=== PATIENT | male | born 1955 | race Caucasian/White ===

== ENCOUNTER 2016-05-02 06:40 | Inpatient (IN) | payer OTHER ==
[~2016-05-02] VITALS: Ht 177.8 cm; Wt 81.6 kg
--- NOTE | 2016-05-02 06:40 | NUR ---
BIBA TO ER BED 4
[2016-05-02 06:57] VITALS: BP 103/68
--- NOTE | 2016-05-02 07:00 | NUR ---
Pt report given to CHARLES. Transfer of care at this time.
[2016-05-02] MEDS ORDERED: NACL 0.9% 1,000 ML IV ONE (07:05)
--- NOTE | 2016-05-02 07:20 | NUR ---
LAB AT BEDSIDE
--- NOTE | 2016-05-02 07:38 | NUR ---
60/M BIBA C/O ETOH, PATIENT ALERT AWAKE ,PAIN ALL OVER BODY. PT DENIES N/V/D AT THIS TIME; SKIN IS PINK/WARM/DRY; SKIN TEAR L ELBOW & L LEG; PITTING EDENA +4 BOTH EXTREMITIES; AAOX4 WITH EVEN AND STEADY GAIT; LUNGS CLEAR BL; HR EVEN AND REGULAR; PT DENIES ANY FEVER, CP, SOB, OR COUGH AT THIS TIME; PATIENT STATES PAIN OF 7/10 AT THIS TIME; VSS; PATIENT POSITIONED FOR COMFORT; HOB ELEVATED; BEDRAILS UP X2; BED DOWN. ER MD MADE AWARE OF PT STATUS.
--- NOTE | 2016-05-02 07:42 | NUR ---
X RAY AT BEDSIDE
[2016-05-02] MEDS ORDERED: VANCOMYCIN 1,000 MG in DEXTROSE 5% 250 ML IV ONE (07:50)
[2016-05-02] MEDS ORDERED: VANCOMYCIN 1,000 MG VIAL ONE (08:06)
--- NOTE | 2016-05-02 08:30 | NUR ---
PT CAN EAT BREAKFAST,NO N/V NOTED.
--- NOTE | 2016-05-02 09:19 | NUR ---
CALLED LORETTA LEE TO GIVE REPORT; LORETTA LEE SAID WILL CALL BACK IN 5 MINS
--- NOTE | 2016-05-02 09:30 | NUR ---
Patient will be admitted to care of DR NEW. Admited to [facility] Will go to room 119. Belongings list completed. Report to LORETTA LEE.
[2016-05-02 10:10] VITALS: BP 140/83
--- NOTE | 2016-05-02 10:30 | NUR ---
PT ADMITTED FROM ER TO TELE WITH DX LEFT LOWER LEG CELLULITIS AND ETOH ABUSE. PT TRANSFERRED FROM [facility] TO BED WITH MINIMAL ASSIST. AAOX4. LETHARGIC. BLE AND BUE SCABS NOTED. NO S/S OF RESPIRATORY DISTRESS. IV RH PATENT AND INTACT. BED IN LOWEST POSITION. CALL LIGHT WITHIN REACH. WILL CONTINUE TO MONITOR.
[2016-05-02] MEDS ORDERED: LORazepam 1 MG TAB PO SCH (11:00)
[2016-05-02] MEDS ORDERED: ONDANSETRON 4 MG/2 ML VIAL IVP PRN (11:05)
[2016-05-02] MEDS ORDERED: LORazepam 2 MG/ML VIAL IVP PRN (11:05)
[2016-05-02] MEDS: NACL 0.9% 1,000 ML IV SCH ×2 (11:24→21:07)
[2016-05-02 12:00] VITALS: BP 100/58
[2016-05-02] MEDS ORDERED: FOLIC ACID 1 MG TAB PO SCH (12:00)
[2016-05-02] MEDS ORDERED: MULTIVITAMIN 1 TAB PO SCH (12:00)
[2016-05-02] MEDS ORDERED: THIAMINE 100 MG TAB PO SCH (12:00)
[2016-05-02] MEDS: LORazepam 1 MG TAB PO SCH ×2 (13:32→20:48)
--- NOTE | 2016-05-02 13:50 | NUR ---
PATIENT SLEEPING, EASILY AWAKENS. NO S/S OF ACUTE DISTRESS. NO TREMORS. WILL CONTINUE TO MONITOR.
--- NOTE | 2016-05-02 14:40 | NUR ---
PATIENT CONVERTED TO AT FIB. PT RESTING IN BED. NO S/S OF ACUTE DISTRESS. DENIES DISCOMFORT. DR. GEIGER MADE AWARE.
[2016-05-02 16:00] VITALS: BP 124/78
--- NOTE | 2016-05-02 16:01 | NUR ---
PATIENT RESTING IN BED. NO S/S OF ACUTE DISTRESS. CALL LIGHT WITHIN REACH. WILL CONTINUE TO MONITOR.
--- NOTE | 2016-05-02 17:00 | NUR ---
DR. TOVAR PERFORMED BEDSIDE CARE FOR PATIENT AT THIS TIME. NO S/S OF ACUTE DISTRESS.
[2016-05-02] MEDS: ACETAMINOPHEN 325 MG TAB PO PRN (17:45)
--- NOTE | 2016-05-02 19:15 | NUR ---
RECEIVED REPORT FROM LORETTA LEE AT BEDSIDE. INITIAL ASSESSMENT COMPLETED. PT AAOX4. PT SLEEPY/LETHARGIC. PT HAS IV TO RIGHT HAND G 20; ASYMPTOMATIC, PATENT AND INTACT INFUSING FLUIDS WELL. PT HAS BILATERAL LOWER EXTREMITIES CELLULITIS. SCABS NOTED TO LEFT LOWE LEG. ORIENTED PT TO ROOM AND SURROUNDINGS AND USE OF CALL LIGHT. EXPLAINED PLAN OF CARE TO PT. PT STATED TO BE LEFT ALONE, HE STATED THAT HE IS SLEEPING. WILL CONTINUE TO MONITOR PT.
--- NOTE | 2016-05-02 19:20 | NUR ---
ENDORSED PLAN OF CARE TO RN ALLYSON AT PT BEDSIDE. NO S/S OF ACUTE DISTRESS.
[2016-05-02 20:00] VITALS: BP 113/74
--- NOTE | 2016-05-02 21:05 | NUR ---
PT TOLERATED 2100 MEDS WELL, VS STABLE. WILL CONTINUE TO MONITOR PT.
--- NOTE | 2016-05-02 22:26 | NUR ---
CHECKED ON PT. PT TRYING TO USE URINAL BUT PT IS SLEEPY/LETHARGIC. I OFFERED TO HELP PT BUT HE GOT ANGRY. HE TOLD ME TO TURN OFF THE LIGHT AND GET OUT OF THE ROOM. WILL CONTINUE TO MONITOR PT. CALL LIGHT WITHIN REACH.
[2016-05-03] VITALS: BP 135/78
[2016-05-03] MEDS: NACL 0.9% 1,000 ML IV SCH ×2 (00:21→17:15)
--- NOTE | 2016-05-03 00:59 | NUR ---
PT AMBULATED TO THE RESTROOM WITH BLUEPRINT DUPLICATOR. PT HAD A LARGE BM. PT WAS WET. LINEN AND GOWN CHANGED. PT RESTING IN BED NOW. WILL CONTINUE TO MONITOR PT.
--- NOTE | 2016-05-03 02:34 | NUR ---
PT SLEEPING AT THIS TIME. NO SIGNS OF DISTRESS OR DISCOMFORT NOTED. WILL CONTINUE TO MONITOR PT.
[2016-05-03 04:00] VITALS: BP 117/67
[2016-05-03] MEDS: LORazepam 1 MG TAB PO SCH ×3 (04:29→21:24)
--- NOTE | 2016-05-03 04:34 | NUR ---
PT TOLERATED 0500 MEDS WELL. PT RESTING COMFORTABLY IN BED, DENIES PAIN. VS ARE STABLE, WILL CONTINUE TO MONITOR PT.
--- NOTE | 2016-05-03 05:45 | NUR ---
CHECKED ON PT. HE STATED THAT HE WAS SLEEPING AND TO LEAVE HIM ALONE AND TURN OFF THE LIGHT. WILL CONTINUE TO MONITOR PT.
[2016-05-03] MEDS ORDERED: ALBUTEROL SULFATE/IPRATROPIU 3 ML SOL IH PRN (06:50)
--- NOTE | 2016-05-03 07:10 | NUR ---
ENDORSED PT IN STABLE CONDITION TO RN SHAHID FOR CONTINUITY OF CARE.
--- NOTE | 2016-05-03 07:11 | NUR ---
PT ALERT AND ORIENTED, NO SIGNS OF ACUTE DISTRESS. SKIN IS WARM AND DRY. NOTED BLE EDEMA, ELEVATED ON PILLOWS. NO C/O ANY BOWEL OR BLADDER DISCOMFORT. ABLE TO AMBULATE WITH MINIMAL ASSIST. DENIES OF ANY PAIN OR DISCOMFORT, SAFETY PRECAUTIONS MAINTAINED. ALL NEEDS ATTENDED. CALL LIGHT WITHIN REACH.
[2016-05-03 08:00] VITALS: BP 139/70
--- NOTE | 2016-05-03 08:26 | NUR ---
PATIENT HAS BEEN SCREENED AND CATEGORIZED MODERATE NUTRITION RISK. PATIENT WILL BE SEEN WITHIN 3-5 DAYS OF ADMISSION. 05/05/16-05/07/[address]
[2016-05-03] MEDS: FOLIC ACID 1 MG TAB PO SCH (09:17)
[2016-05-03] MEDS: MULTIVITAMIN 1 TAB PO SCH (09:17)
[2016-05-03] MEDS: THIAMINE 100 MG TAB PO SCH (09:18)
[2016-05-03 12:00] VITALS: BP 144/75
--- NOTE | 2016-05-03 12:32 | NUR ---
NEW ORDERS RECEIVED FROM DR. TOVAR, NOTED AND CARRIED OUT.
[2016-05-03] MEDS ORDERED: NICOTINE TRANSD SYS 14 MG/24 HR PATCH TD SCH (12:38)
[2016-05-03] MEDS ORDERED: MAG SULF 2000 MG/WATER PREMIX 50 ML IV SCH (13:00)
--- NOTE | 2016-05-03 13:26 | NUR ---
SPUTUM SENT FOR C7S SPUTUM GIVEN TO LORETTA KEY
[2016-05-03] MEDS: ANTIFUNGAL CLEAR OINTMENT TP SCH ×2 (13:38→21:15)
[2016-05-03 16:00] VITALS: BP 140/82
--- NOTE | 2016-05-03 16:00 | NUR ---
TRANSFERRED TO MED/SURG LEVEL OF CARE. ORDERED, CONTINUE TO MONITOR.
--- NOTE | 2016-05-03 19:01 | NUR ---
PT ALERT AND RESPONSIVE, NO SIGNS OF ACUTE DISTRESS. ENDORSED TO ONCOMING MEDICAL OFFICE RECEPTIONIST ASSISTANT NURSE FOR CONTINUITY OF CARE.
--- NOTE | 2016-05-03 19:02 | NUR ---
FOUND EMPTY SMALL BOTTLE OF VODKA ON PT'S BED. GRADE SCHOOL TEACHER NURSE TO F/U WITH MD TO BE MADE AWARE. CHARGE NURSE ALSO MADE AWARE.
--- NOTE | 2016-05-03 19:30 | NUR ---
PATIENT IS AWAKE RESTING IN BED DENIES PAIN AT THIS TIME,IVF INFUSING WELL,PATIENT CONTINUES TO USE THE URINAL, PT IS CALM AND COOPERATIVE.PATIENTS BOTH LOWER EXTREMITIES ARE SWOLLEN AND REDDENED AND IN BETWEEN HIS TOES ITS VERY DRY PATIENT HAS A ANTIFUNGAL CREAM THAT WAS ORDERED WILL APPLY LATER.VITALS SIGNS PATIENT REMAINS AFEBRILE.WILL CONTINUE TO MONITOR.
--- NOTE | 2016-05-03 19:30 | NUR ---
Patient's Plan of Care was discussed and reviewed with INFORMATION SYSTEMS SECURITY SPECIALIST: SWATI
[2016-05-03 20:11] VITALS: BP 123/67
--- NOTE | 2016-05-03 20:38 | NUR ---
PT ASLEEP, NO DISTRESS/SOB/WHEEZING NOTED AT THIS TIME. NO INDICATION FOR HHN PRN TX
[2016-05-03] MEDS: SACCHAROMYCES 250 MG CAP PO SCH (21:25)
--- NOTE | 2016-05-03 22:20 | NUR ---
PATIENT IS CURRENTLY RESTING IN BED USES THE URINAL,IVF INFUSING WELL IV SITE PATENT,PATIENT ON FALL PRECAUTIONS WILL CONTINUE TO MONITOR.CALL LIGHT WITHIN REACH.
[2016-05-04] VITALS: BP 138/76
--- NOTE | 2016-05-04 01:30 | NUR ---
WHILE MAKING ROUNDS I NOTICE PATIENT GOT UP TO USE THE BATHROOM AND DIDN'T CALL FOR ASSISTANCE,SO I ASSISTED HIM BACK IN BED AND DENNYS LINDO AND MYSELF CHANGED THE BED TO ONE THAT HAS A BED ALARM.PT INSTRUCTED FOR SAFETY TO CALL FOR HELP.PT VERBALIZES UNDERSTANDING BUT WILL CONTINUE TO MONITOR.
--- NOTE | 2016-05-04 04:03 | NUR ---
PATIENT IS CURRENTLY RESTING IN BED SNORING AT THIS TIME,IVF INFUSING WELL,IV SITE PATENT WILL CONTINUE TO MONITOR.
[2016-05-04] MEDS: LORazepam 1 MG TAB PO SCH ×3 (06:05→20:37)
[2016-05-04] MEDS: NACL 0.9% 1,000 ML IV SCH ×3 (06:05→16:36)
--- NOTE | 2016-05-04 06:15 | NUR ---
PT STABLE FALL PREC IMPLEMENTED AND BED ALAR ON.PT SLEEPING.CALL LIGHT WITHIN REACH.
--- NOTE | 2016-05-04 07:25 | NUR ---
PT STABLE REPORT ENDORSED TO LORETTA BOSS HE WILL RESUME CARE OF THE PATIENT.
--- NOTE | 2016-05-04 07:28 | NUR ---
RECEIVED REPORT FROM AMANDA CHAVEZ. PT IS AAOX4, RESTING IN BED, IV ON RT FA 20 G, PATENT AND INTACT. NO S/S OF RESPIRATORY DISTRESS OR DISCOMFORT NOTED. SAFETY/FALL PRECAUTIONS IN PLACE. DISCUSSED PLAN OF CARE WITH PT, PT VERBALIZED UNDERSTANDING. CALL LIGHT WITHIN REACH. WILL CONTINUE TO MONITOR.
[2016-05-04] MEDS: FOLIC ACID 1 MG TAB PO SCH (08:59)
[2016-05-04] MEDS: SACCHAROMYCES 250 MG CAP PO SCH ×2 (08:59→20:37)
[2016-05-04] MEDS: THIAMINE 100 MG TAB PO SCH (09:00)
[2016-05-04] MEDS: MULTIVITAMIN 1 TAB PO SCH (09:00)
[2016-05-04] MEDS: NICOTINE TRANSD SYS 14 MG/24 HR PATCH TD SCH (09:18)
--- NOTE | 2016-05-04 09:18 | NUR ---
PT IS RESTING IN BED. DUE MEDS ARE GIVEN AT THIS TIME. NO S/S OF RESPIRATORY DISTRESS OR DISCOMFORT NOTED. FALL/SAFETY PRECAUTIONS IN PLACE. CALL LIGHT WITHIN REACH. WILL CONTINUE TO MONITOR.
[2016-05-04] MEDS: ANTIFUNGAL CLEAR OINTMENT TP SCH ×2 (09:19→20:37)
--- NOTE | 2016-05-04 11:05 | NUR ---
PT IS RESTING IN BED WATCHING TV. NO S/S OF RESPIRATORY DISTRESS OR DISCOMFORT NOTED. CALL LIGHT WITHIN REACH. WILL CONTINUE TO MONITOR.
--- NOTE | 2016-05-04 11:54 | NUR ---
DR. BUCHANAN, MILLING MACHINE SET UP OPERATOR IS IN THE NURSE'S STATION.
--- NOTE | 2016-05-04 13:11 | NUR ---
DUE MEDS GIVEN. PT TOLERATED WELL. ALL NEEDS MET AT THIS TIME. NO S/S OF RESPIRATORY DISTRESS OR DISCOMFORT NOTED. CALL LIGHT WITHIN REACH. WILL CONTINUE TO MONITOR.
--- NOTE | 2016-05-04 15:08 | NUR ---
ASSISTED PT TO THE RESTROOM. PT HAD MODERATE AMOUNT OF FORMED BROWN BOWEL MOVEMENT. ASSISTED BACK TO THE BED. PT TOLERATED IT WELL. ALL NEEDS MET AT THIS TIME. CALL LIGHT WITHIN REACH. WILL CONTINUE TO MONITOR.
[2016-05-04 16:00] VITALS: BP 119/61
[2016-05-04] MEDS: ACETAMINOPHEN 325 MG TAB PO PRN (16:52)
--- NOTE | 2016-05-04 16:52 | NUR ---
PT IS RESTING IN BED. IV FLUIDS REPLACED AND RUNNING. PT COMPLAINED OF A 7/10 PAIN. DUE PAIN MEDICATION GIVEN AT THIS TIME. PT TOLERATED WELL. NO S/S OF RESPIRATORY DISTRESS OR DISCOMFORT NOTED. ALL NEEDS MET AT THIS TIME. CALL LIGHT WITHIN REACH. WILL CONTINUE TO MONITOR.
--- NOTE | 2016-05-04 19:04 | NUR ---
ENDORSED PT TO AMANDA CHAVEZ FOR CONTINUITY OF CARE. PT IS STABLE AT THIS TIME.
--- NOTE | 2016-05-04 19:05 | NUR ---
PATIENT IS CURRENTLY AWAKE ALERT AND COMPLIANT PATIENT IS RESTING IN BED AT THIS TIME ASSISTED TO USE THE URINAL PATIENT CONTINUES TO BE ON FALL PRECAUTIONS AND BED ALARM IS ON.CALL LIGHT WITHIN REACH WILL CONTINUE TO MONITOR.
[2016-05-04 20:00] VITALS: BP 138/74
--- NOTE | 2016-05-04 20:00 | NUR ---
Patient's Plan of Care was discussed and reviewed with GEOPHYSICAL OPERATOR: SCOTT HARTMAN
--- NOTE | 2016-05-04 20:37 | NUR ---
PT REFUSED TO HAVE THE ANTIFUNGAL CREAM APPLIED ORDERED EDUCATION GIVEN TO THE PATIENT ON THE MEDICATION AND HOW IT BENEFITS HIM BUT PT REFUSED,REFUSED,REFUSED.
--- NOTE | 2016-05-04 22:10 | NUR ---
PATIENT IS CURRENTLY RESTING IN BED CONTINUES TO HAVE SIDERAILS PADDED FOR SEIZURE PRECATION. PT CONTINUES TO BE ON FALL PRECAUTIONS AND BED ALARM IS ON.PT IS NOT WEARING SCD'S BECAUSE OF THE CELLULITIS IN HIS LEGS. 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 PATIENT HAS AN ORDER FOR INCENTIVE SPIROMETER WILL GIVE ONE TO THE PATIENT AND WILL PROVIDE EDUCATION.CALL LIGHT WITHIN REACH WILL CONTINUE TO MONITOR.
--- NOTE | 2016-05-05 01:05 | NUR ---
PATIENT STABLE SLEEPING COMFORTABLY IN BED DENIES PAIN AND DISCOMFORT BED ALARM ON.NO SYMPTOMS OF ALCOHOL WITHDRAWAL NOTED NO SZ ACTIVITY NOTED.IVF INFUSING WELL.FREQUENT VISUAL CHECKS DONE WILL CONTINUE TO MONITOR.
--- NOTE | 2016-05-05 03:26 | NUR ---
PATIENT IS CURRENTLY AWAKE ALERT ORIENTED RESTING IN BED URINAL CONTINUES TO BE EMPTIED PT CONTINUES TO BE COMPLIANT AND HASN'T ATTEMPTED TO GET OUT OF BED.IVF INFUSING WELL WILL CONTINUE TO MONITOR.CALL LIGHT WITHIN REACH.
--- NOTE | 2016-05-05 06:15 | NUR ---
PT IS CURRENTLY AWAKE WATCHING TV ON AND OFF AND DENIES PAIN AND DISCOMFORT.IVF INFUSING WELL,IV SITE PATENT NO INFILTRATION NOTED.NO SZ ACTIVITY NOTED.PT CONTINUES TO BE ON FALL PRECAUTION AND BED ALARM KEPT ON.
[2016-05-05] MEDS: LORazepam 1 MG TAB PO SCH ×3 (06:19→20:37)
[2016-05-05] MEDS: LEVOTHYROXINE 0.1 MG TAB PO SCH (06:19)
--- NOTE | 2016-05-05 07:20 | NUR ---
RECEIVED PATIENT REPORT. PATIENT AWAKE, ALERT AND ORIENTED. NO S/S OF DISTRESS NOTED. NO C/O PAIN. DRESSINGS NOTED TO BLE. DRESSING CLEAN DRY AND INTACT. IV LINE NOTED TO THE RIGHT FOREARM WITH IVF INFUSING WELL. BED LOWERED WITH CALL LIGHT WITHIN REACH. WILL CONTINUE TO MONITOR
[2016-05-05 08:00] VITALS: BP 146/76
[2016-05-05] MEDS: ANTIFUNGAL CLEAR OINTMENT TP SCH ×2 (09:00→20:37)
[2016-05-05] MEDS: NACL 0.9% 1,000 ML IV SCH ×2 (09:07→12:15)
--- NOTE | 2016-05-05 09:35 | NUR ---
MADE DR GEIGER AWARE OF PATIENT'S MAGNESIUM LEVEL OF 1.7
[2016-05-05] MEDS: FOLIC ACID 1 MG TAB PO SCH (10:00)
[2016-05-05] MEDS: SACCHAROMYCES 250 MG CAP PO SCH ×2 (10:00→20:36)
[2016-05-05] MEDS: MULTIVITAMIN 1 TAB PO SCH (10:00)
[2016-05-05] MEDS: THIAMINE 100 MG TAB PO SCH (10:01)
[2016-05-05] MEDS: NICOTINE TRANSD SYS 14 MG/24 HR PATCH TD SCH (10:03)
--- NOTE | 2016-05-05 10:30 | NUR ---
PATIENT IN BED, WATCHING TELEVISION. NO S/S OF DISTRESS NOTED
--- NOTE | 2016-05-05 15:51 | NUR ---
PATIENT ASLEEP IN BED. NO S/S OF DISTRESS NOTED
[2016-05-05 16:00] VITALS: BP 144/74
[2016-05-05] MEDS ORDERED: MAGNESIUM OXIDE 400 MG TAB PO SCH ×2 (16:00→21:00)
--- NOTE | 2016-05-05 19:23 | NUR ---
ENDORSED CONTINUITY OF CARE TO THE DRILL PRESSER NURSE. PATIENT IN STABLE CONDITION
--- NOTE | 2016-05-05 19:25 | NUR ---
RECEIVED FROM AM RN IN BED AWAKE AND IN SITTING UP POSITION IN BED WATCHING TV. ABLE TO VERBALIZE NEEDS WELL. NO SOB. DENIES PAIN AT THIS TIME. CALL LIGHT WITH IN REACH AND CARE PLAN FOR THE NIGHT DISCUSSED WITH HIM. AFEBRILE. ABLE TO USE CALL LIGHT FOR HELP. A/O X 4.
--- NOTE | 2016-05-05 22:49 | NUR ---
PT. SLEEPING AT THIS TIME. NO RESTLESSNESS NOTED. CALL LIGHT WITH IN REACH.
[2016-05-06] VITALS: BP 132/76
--- NOTE | 2016-05-06 00:52 | NUR ---
CHECKED ON PT. SLEEPING. FLACC 0- NO RESTLESSNESS NOTED.
--- NOTE | 2016-05-06 03:00 | NUR ---
SLEEPING . NO COMPLAINTS DONE. ABLE TO VERBALIZE NEEDS WELL. IVF SITES INTACT AND NO INFILTRATION.
--- NOTE | 2016-05-06 05:20 | NUR ---
CHECKED ON PT. SLEEPING. NO RESTLESSNESS. CALL LIGHT WITH IN REACH.
[2016-05-06] MEDS: LORazepam 1 MG TAB PO SCH ×2 (06:39→12:36)
[2016-05-06] MEDS: LEVOTHYROXINE 0.1 MG TAB PO SCH (06:39)
--- NOTE | 2016-05-06 07:22 | NUR ---
ENDORSED TO THE NEXT RN FOR CONTINUITY OF CARE. AWAKE AND ALERT SITTING UP POSITION IN BED AND WATCHING TV. VERBALIZES WELL. GOOD AFFECT. NO COMPLAINTS DONE.
--- NOTE | 2016-05-06 07:23 | NUR ---
RECEIVED PT REPORT FROM THE NIGHTSHIFT NURSE AT BEDSIDE. PT IS AWAKE AND ALERT. HE IS A HOMELESS 60 Y/O MAN. HE IS SMILING, VERY FRIENDLY. HE HIS READY FOR BREAKFAST. I INTRODUCED MYSELF HIS NURSE. NOTED THE SEIZURE PADS ON THE SIDES OF HIS BED. HE HAD BLE WRAPPED UP IN SHAHID BANDAGES AND YELLOW SOCKS. IV ON R FA 20G NS AT 50ML. BAG IS ALMOST EMPTY. WILL REPLACE WHEN I GIVE HIM MORNING MEDS. WILL BE BACK TO DO HIS MORNING VITALS. BREATHING IS REGULAR. NO SIGNS OF DISCOMFORT. SAFETY MEASURES IN PLACE. WILL BE BACK.
[2016-05-06 08:00] VITALS: BP 144/75
--- NOTE | 2016-05-06 08:00 | NUR ---
V/S WITHIN NORMAL RANGE. NO PAIN. UPDATED THE BOARD. BREAKFAST IS HERE. WILL CONTINUE TO MONITOR PT.
[2016-05-06] MEDS: THIAMINE 100 MG TAB PO SCH (09:04)
[2016-05-06] MEDS: SACCHAROMYCES 250 MG CAP PO SCH (09:04)
[2016-05-06] MEDS: MULTIVITAMIN 1 TAB PO SCH (09:04)
[2016-05-06] MEDS: NICOTINE TRANSD SYS 14 MG/24 HR PATCH TD SCH (09:04)
[2016-05-06] MEDS: FOLIC ACID 1 MG TAB PO SCH (09:04)
--- NOTE | 2016-05-06 09:30 | NUR ---
PT IS SLEEPING. NO SIGNS OF DISTRESS. WILL CONTINUE TO MONITOR PT.
[2016-05-06] MEDS: NACL 0.9% 1,000 ML IV SCH (09:45)
[2016-05-06] MEDS: ANTIFUNGAL CLEAR OINTMENT TP SCH (09:45)
[2016-05-06] MEDS ORDERED: MAGNESIUM OXIDE 400 MG TAB PO SCH (10:33)
--- NOTE | 2016-05-06 11:30 | NUR ---
PT IS SLEEPING. NO SIGNS OF DISTRESS. WILL CONTINUE TO MONITOR PT.
--- NOTE | 2016-05-06 13:00 | NUR ---
PT IS RESTING COMFORTABLY AFTER FINISHING 100% OF HIS LUNCH. INFORMED THAT I WILL BE WORKING ON HIS D/C. I WILL HAVE A BUS PASS FOR HIM. HE DOESN'T KNOW WHERE THE BUS STOP IS. I WILL FIND OUT FOR HIM. HE IS STABLE. NO SIGNS OF DISCOMFORT OR DISTRESS. NO PAIN. WILL CONTINUE TO MONITOR PT.
[2016-05-06] MEDS ORDERED: THIAMINE HCL50 M1 PO (13:21)
[2016-05-06] MEDS ORDERED: DAILY VITAMIN1 EAC2 PO (13:21)
[2016-05-06] MEDS ORDERED: FOLIC ACID0.4 M1 PO (13:21)
[2016-05-06] MEDS ORDERED: KEFLEX500 M2 PO (13:22)
[2016-05-06] MEDS ORDERED: SYNTHROID0.1 MG PO (13:24)
--- NOTE | 2016-05-06 14:00 | NUR ---
WENT OVER THE D/C INSTRUCTIONS WITH PT. INCLUDED EDUCATION RE. HIS ALCOHOL USE, CELLULITIS, AND SMOKING CESSATION. PT IS VERBALIZED UNDERSTANDING. ANSWERED ALL QUESTIONS. HE IS GOING BACK TO [place]. HE NEEDED SOME CLEAN CLOTHES SO CALLED SECURITY TO BRING HIM SOME. THEY BROUGHT HIM PAIR OF JEANS. I REMOVED ALL ARM BANDS, REMOVED IV, CANNULA INTACT. REMOVED THE "BOOT" AND TOOK PICTURES OF THE WOUND SITE. REWRAPPED BLE WITH SHAHID BANDAGING. EDUCATED PT TO OPEN, ASSESS, AND RE-WRAP LEGS. PT VERBALIZED UNDERSTANDING. ALSO LET HIM KNOW THAT THERE IS A BUS STOP AT THE [facility] OF [facility]. PT SIGNED ALL THE APPROPRIATE PAPERWORK. HE WILL GET DRESSED, GATHERED HIS PERSONAL BELONGINGS AND LET US KNOW WHEN HE IS READY TO GO.
--- NOTE | 2016-05-06 14:05 | NUR ---
SPOKE TO DR. ANTHONY, PER MD GO AHEAD AND REMOVE BOOT BEFORE DC. HE NEEDS TO OPEN IT UP EVERY DAY AND AND RE-WRAP IT DAILY. FOLLOW UP WITH [facility]. WILL RELAY THE MESSAGE TO PT.
--- NOTE | 2016-05-06 14:45 | NUR ---
PT IS BEING WHEELED OUT BY THE CUT AND PRINT MACHINE OPERATOR. PT IS STABLE. PT IS TAKING ALL PERSONAL BELONGINGS, DC PACKET AND A BUS PASS.
--- NOTE | 2016-05-07 12:37 | NUR ---
SERENA SMITH SPOKE WITH SERENA JOYA OF [facility] PH# [phone] AND GAVE HER A VERBAL UPDATE ON WHAT HAPPENED TO THE PATIENT OVER THE WEEKEND AND INFORMED HER THAT PATIENT WAS DISCHARGED. SENT THE DISCHARGE SUMMARY TO [facility] FAX# [phone] ATTN: [facility]# [phone]
== END 2016-05-06 14:45 | disposition home or self-care (01) | DRG 775 ==
LOC: MED 06:40 → MTU 09:21
PROVIDERS: ADMIT Family Medicine; ATTEND Family Medicine
DX: F10.229 Alcohol dependence with intoxication, unspecified (principal); G92 Toxic encephalopathy; L03.115 Cellulitis of right lower limb; L03.116 Cellulitis of left lower limb; E83.42 Hypomagnesemia; K74.60 Unspecified cirrhosis of liver; D63.8 Anemia in other chronic diseases classified elsewhere; I87.2 Venous insufficiency (chronic) (peripheral); L97.929 Non-pressure chronic ulcer of unspecified part of left lower leg with unspecified severity; R73.9 Hyperglycemia, unspecified; E83.51 Hypocalcemia; J44.9 Chronic obstructive pulmonary disease, unspecified; Y90.6 Blood alcohol level of 120-199 mg/100 ml; B19.20 Unspecified viral hepatitis C without hepatic coma; K59.09 Other constipation; G89.28 Other chronic postprocedural pain; M25.511 Pain in right shoulder; E03.9 Hypothyroidism, unspecified; B35.3 Tinea pedis; Z59.0 Homelessness; Z72.0 Tobacco use